=== PATIENT | female | born 1985 | race Two or more races ===

== ENCOUNTER 2017-03-24 14:00 | Inpatient (IN) | payer MEDICAID, OTHER ==
[~2017-03-24] VITALS: Ht 162.6 cm; Wt 74.7 kg
[2017-03-24] MEDS ORDERED: NALOXONE 1 MG/ML, 2ML ONE ×2 (14:23→17:46)
[2017-03-24 15:04] LABS: BASOPHILS # (AUTO) 0.02 x10^3/uL (0-0.1); BASOPHILS % (AUTO) 0 % (0-1); EOSINOPHILS % (AUTO) 0 % (1-7); LYMPHOCYTES # (AUTO) 0.24 x10^3/uL (1-3.4); LYMPHOCYTES % (AUTO) 2 % (22-44); MD NO; MEAN CORPUSCULAR HEMOGLOBIN 23.2 pg (27.0-34.8); MEAN CORPUSCULAR HGB CONC 31.7 g/dL (32.4-35.8); MEAN CORPUSCULAR VOLUME 73.1 fL (80-100); MEAN PLATELET VOLUME 8.8 fL (7.4-10.4); MONOCYTES # (AUTO) 1.29 x10^3/uL (0.2-0.8); MONOCYTES % (AUTO) 10 % (2-9); NEUTROPHILS # (AUTO) 11.48 x10^3/uL (1.8-6.8); NEUTROPHILS % (AUTO) 88 % (42-75); PLATELET COUNT 306 x10^3/uL (130-400); RED BLOOD COUNT 4.63 x10^6/uL (3.82-5.3); RED CELL DISTRIBUTION WIDTH 19.2 % (9.6-15.2)
[2017-03-24 15:13] LABS: ALBUMIN 3.3 g/dL (3.4-5.0); ANION GAP 8 mmol/L (5-15); CALCIUM 8.5 mg/dL (8.5-10.1); CHLORIDE 101 mmol/L (98-107)
[2017-03-24 15:17] LABS: SALICYLATE LEVEL < 1.7 mg/dL (2.8-20.0)
[2017-03-24 15:20] LABS: ALANINE AMINOTRANSFERASE 57 U/L (12-78); ALKALINE PHOSPHATASE 74 U/L (45-117); BILIRUBIN,TOTAL 0.2 mg/dL (0.2-1.0); CREATININE 0.94 mg/dL (0.55-1.02); TOTAL PROTEIN 7.2 g/dL (6.4-8.2)
[2017-03-24 15:21] LABS: ACETAMINOPHEN < 2 mcg/mL (10-30)
[2017-03-24] MEDS ORDERED: NALOXONE 1 MG/ML, 2ML IVPush ONE ×2 (15:30)
[2017-03-24] MEDS ORDERED: NALOXONE 0.4 MG in SODIUM CHLORIDE 0.9% 1,000 ML IV SCH (15:30)
[2017-03-24 16:29] LABS: AMPHETAMINE SCREEN, URINE Negative (Negative); BARBITURATE SCREEN, URINE Negative (Negative); BENZODIAZEPINE SCREEN, URINE Negative (Negative); CANNABINOID SCREEN, URINE Positive (Negative); COCAINE SCREEN, URINE Negative (Negative); METHADONE SCREEN, URINE Negative (Negative); OPIATE SCREEN, URINE Positive (Negative)
[2017-03-24] MEDS ORDERED: BISACODYL 10 MG SUPP PR PRN (18:00)
[2017-03-24] MEDS ORDERED: ACETAMINOPHEN 325 MG TABLET PO PRN (18:00)
[2017-03-24] MEDS ORDERED: NALOXONE 0.4 MG/ML, 1ML IVPush PRN (18:00)
[2017-03-24] MEDS ORDERED: POLYETHYLENE GLYCOL 17 GM PACKET PO PRN (18:00)
[2017-03-24] MEDS: SODIUM CHLORIDE 0.9% 1,000 ML IV SCH (19:36)
[2017-03-24] MEDS: FAMOTIDINE 20 MG/2 ML IVPush SCH (19:47)
[2017-03-24] MEDS: ENOXAPARIN 40 MG/0.4 ML SQ SCH (19:47)
[2017-03-24] MEDS: NALOXONE 10 MG in SODIUM CHLORIDE 0.9% 1,000 ML IVPush SCH (23:05)
[2017-03-25 00:01] VITALS: BP 108/72
[2017-03-25 04:00] VITALS: BP 122/64
[2017-03-25 04:43] LABS: MEAN CORPUSCULAR HEMOGLOBIN 23.5 pg (27.0-34.8); MEAN CORPUSCULAR HGB CONC 31.6 g/dL (32.4-35.8); MEAN CORPUSCULAR VOLUME 74.4 fL (80-100); MEAN PLATELET VOLUME 9.3 fL (7.4-10.4); PLATELET COUNT 281 x10^3/uL (130-400); RED BLOOD COUNT 4.21 x10^6/uL (3.82-5.3); RED CELL DISTRIBUTION WIDTH 19.5 % (9.6-15.2)
[2017-03-25 04:49] LABS: ALBUMIN 2.9 g/dL (3.4-5.0); ANION GAP 5 mmol/L (5-15); CALCIUM 8.1 mg/dL (8.5-10.1); CHLORIDE 105 mmol/L (98-107)
[2017-03-25 04:53] LABS: ALANINE AMINOTRANSFERASE 50 U/L (12-78); ALKALINE PHOSPHATASE 68 U/L (45-117); BILIRUBIN,TOTAL 0.4 mg/dL (0.2-1.0); CREATININE 0.51 mg/dL (0.55-1.02); TOTAL PROTEIN 6.5 g/dL (6.4-8.2)
[2017-03-25] MEDS: SODIUM CHLORIDE 0.9% 1,000 ML IV SCH ×2 (05:20→15:36)
[2017-03-25 05:52] LABS: BASOPHILS # (AUTO) 0.03 x10^3/uL (0-0.1); BASOPHILS % (AUTO) 0 % (0-1); EOSINOPHILS # (AUTO) 0.06 x10^3/uL (0-0.4); EOSINOPHILS % (AUTO) 1 % (1-7); LYMPHOCYTES # (AUTO) 0.84 x10^3/uL (1-3.4); LYMPHOCYTES % (AUTO) 8 % (22-44); MD SCAN; MONOCYTES # (AUTO) 0.99 x10^3/uL (0.2-0.8); MONOCYTES % (AUTO) 10 % (2-9); NEUTROPHILS # (AUTO) 8.45 x10^3/uL (1.8-6.8); NEUTROPHILS % (AUTO) 82 % (42-75)
[2017-03-25] MEDS: FAMOTIDINE 20 MG/2 ML IVPush SCH ×2 (09:26→20:58)
[2017-03-25] MEDS: NALOXONE 10 MG in SODIUM CHLORIDE 0.9% 1,000 ML IVPush SCH (09:29)
[2017-03-25] MEDS: ENOXAPARIN 40 MG/0.4 ML SQ SCH (17:06)
[2017-03-25] MEDS: FERROUS SULFATE 325 MG TABLET PO SCH (17:06)
[2017-03-25] MEDS: NALOXONE 10 MG in SODIUM CHLORIDE 0.9% 1,000 ML IV SCH (19:41)
[2017-03-26] MEDS: SODIUM CHLORIDE 0.9% 1,000 ML IV SCH ×3 (01:01→21:30)
[2017-03-26 04:00] VITALS: BP 111/68
[2017-03-26 05:42] LABS: BASOPHILS # (AUTO) 0.02 x10^3/uL (0-0.1); BASOPHILS % (AUTO) 0 % (0-1); EOSINOPHILS # (AUTO) 0.06 x10^3/uL (0-0.4); EOSINOPHILS % (AUTO) 1 % (1-7); LYMPHOCYTES # (AUTO) 0.46 x10^3/uL (1-3.4); LYMPHOCYTES % (AUTO) 5 % (22-44); MD NO; MEAN CORPUSCULAR HEMOGLOBIN 23.7 pg (27.0-34.8); MEAN CORPUSCULAR HGB CONC 32.1 g/dL (32.4-35.8); MEAN CORPUSCULAR VOLUME 73.9 fL (80-100); MEAN PLATELET VOLUME 8.9 fL (7.4-10.4); MONOCYTES # (AUTO) 0.81 x10^3/uL (0.2-0.8); MONOCYTES % (AUTO) 8 % (2-9); NEUTROPHILS # (AUTO) 8.63 x10^3/uL (1.8-6.8); NEUTROPHILS % (AUTO) 86 % (42-75); PLATELET COUNT 233 x10^3/uL (130-400); RED BLOOD COUNT 4.09 x10^6/uL (3.82-5.3); RED CELL DISTRIBUTION WIDTH 19.4 % (9.6-15.2)
[2017-03-26 05:57] LABS: ANION GAP 6 mmol/L (5-15); CALCIUM 8.4 mg/dL (8.5-10.1); CHLORIDE 104 mmol/L (98-107); CREATININE 0.32 mg/dL (0.55-1.02)
[2017-03-26] MEDS: NALOXONE 10 MG in SODIUM CHLORIDE 0.9% 1,000 ML IV SCH ×2 (07:16→18:13)
[2017-03-26] MEDS: FERROUS SULFATE 325 MG TABLET PO SCH ×2 (08:23→17:01)
[2017-03-26] MEDS: FAMOTIDINE 20 MG/2 ML IVPush SCH ×2 (08:26→20:36)
[2017-03-26] MEDS ORDERED: GADOBUTROL 7.5 MMOL/7.5 ML PFS ONE (15:20)
[2017-03-26] MEDS: ENOXAPARIN 40 MG/0.4 ML SQ SCH (17:01)
[2017-03-27 04:00] VITALS: BP 114/63
[2017-03-27] MEDS: NALOXONE 10 MG in SODIUM CHLORIDE 0.9% 1,000 ML IV SCH (04:17)
[2017-03-27 04:36] LABS: BASOPHILS # (AUTO) 0.02 x10^3/uL (0-0.1); BASOPHILS % (AUTO) 0 % (0-1); EOSINOPHILS # (AUTO) 0.08 x10^3/uL (0-0.4); EOSINOPHILS % (AUTO) 1 % (1-7); LYMPHOCYTES # (AUTO) 0.62 x10^3/uL (1-3.4); LYMPHOCYTES % (AUTO) 7 % (22-44); MD NO; MEAN CORPUSCULAR HEMOGLOBIN 23.8 pg (27.0-34.8); MEAN CORPUSCULAR HGB CONC 31.8 g/dL (32.4-35.8); MEAN CORPUSCULAR VOLUME 74.8 fL (80-100); MEAN PLATELET VOLUME 9.6 fL (7.4-10.4); MONOCYTES # (AUTO) 0.81 x10^3/uL (0.2-0.8); MONOCYTES % (AUTO) 9 % (2-9); NEUTROPHILS # (AUTO) 8.04 x10^3/uL (1.8-6.8); NEUTROPHILS % (AUTO) 84 % (42-75); PLATELET COUNT 229 x10^3/uL (130-400); RED BLOOD COUNT 4.11 x10^6/uL (3.82-5.3)
[2017-03-27 04:40] LABS: CALCIUM 8.5 mg/dL (8.5-10.1); CHLORIDE 102 mmol/L (98-107)
[2017-03-27 04:42] LABS: ANION GAP 8 mmol/L (5-15); CREATININE 0.32 mg/dL (0.55-1.02)
[2017-03-27] MEDS: SODIUM CHLORIDE 0.9% 1,000 ML IV SCH ×2 (08:50→15:31)
[2017-03-27] MEDS: FERROUS SULFATE 325 MG TABLET PO SCH ×2 (08:52→15:30)
[2017-03-27] MEDS: FAMOTIDINE 20 MG/2 ML IVPush SCH ×2 (08:52→21:45)
[2017-03-27] MEDS: NALOXONE IV SCH ×3 (10:18→15:29)
[2017-03-27] MEDS: SODIUM CHLORIDE 0.9% IV SCH ×3 (10:18→15:29)
[2017-03-27] MEDS ORDERED: MAGNESIUM CITRATE 300ML ORAL SOL PO ONE (14:00)
[2017-03-27] MEDS: ENOXAPARIN 40 MG/0.4 ML SQ SCH (17:22)
[2017-03-28] MEDS: NALOXONE IV SCH ×3 (00:49→09:09)
[2017-03-28] MEDS: SODIUM CHLORIDE 0.9% IV SCH ×3 (00:49→09:09)
[2017-03-28] MEDS: SODIUM CHLORIDE 0.9% 1,000 ML IV SCH ×2 (08:02→14:23)
[2017-03-28] MEDS: FERROUS SULFATE 325 MG TABLET PO SCH ×2 (08:02→17:47)
[2017-03-28] MEDS: NALTREXONE HCL 50 MG TABLET PO SCH (11:49)
[2017-03-28] MEDS: ONDANSETRON 2MG/ML, 2ML IVPush PRN ×2 (14:17→19:28)
[2017-03-28] MEDS ORDERED: PROMETHAZINE 25 MG/ML, 1ML ONE (15:11)
[2017-03-28] MEDS: ENOXAPARIN 40 MG/0.4 ML SQ SCH (17:48)
[2017-03-28] MEDS ORDERED: SODIUM CHLORIDE 0.9% IV SCH ×2 (21:00)
[2017-03-28] MEDS ORDERED: NALOXONE IV SCH ×2 (21:00)
[2017-03-29] MEDS: MAGNESIUM CITRATE 300ML ORAL SOL PO STA ×2 (08:05→10:23)
[2017-03-29 08:53] LABS: MEAN CORPUSCULAR HEMOGLOBIN 23.7 pg (27.0-34.8); MEAN CORPUSCULAR HGB CONC 32.3 g/dL (32.4-35.8); MEAN CORPUSCULAR VOLUME 73.3 fL (80-100); MEAN PLATELET VOLUME 8.9 fL (7.4-10.4); PLATELET COUNT 278 x10^3/uL (130-400); RED BLOOD COUNT 3.66 x10^6/uL (3.82-5.3); RED CELL DISTRIBUTION WIDTH 19.5 % (9.6-15.2)
[2017-03-29 08:58] LABS: ANION GAP 11 mmol/L (5-15); CHLORIDE 111 mmol/L (98-107); CREATININE 0.38 mg/dL (0.55-1.02)
[2017-03-29] MEDS: NALTREXONE HCL 50 MG TABLET PO SCH ×4 (09:00→13:34)
[2017-03-29 09:03] LABS: ANISOCYTOSIS 1+; BASOPHILS # (AUTO) 0.02 x10^3/uL (0-0.1); BASOPHILS % (AUTO) 0 % (0-1); EOSINOPHILS # (AUTO) 0.03 x10^3/uL (0-0.4); EOSINOPHILS % (AUTO) 0 % (1-7); LYMPHOCYTES # (AUTO) 0.85 x10^3/uL (1-3.4); LYMPHOCYTES % (AUTO) 12 % (22-44); MD MORPH REVIEW ONLY; MONOCYTES # (AUTO) 0.66 x10^3/uL (0.2-0.8); MONOCYTES % (AUTO) 9 % (2-9); NEUTROPHILS # (AUTO) 5.48 x10^3/uL (1.8-6.8); NEUTROPHILS % (AUTO) 78 % (42-75)
[2017-03-29 09:04] LABS: <PLATELET ESTIMATE> ADEQUATE; <PLT MORPHOLOGY> NORMAL PLT MORPH; OVALOCYTES 1+; POLYCHROMASIA 1+
[2017-03-29] MEDS: FERROUS SULFATE 325 MG TABLET PO SCH ×2 (10:01→17:10)
[2017-03-29] MEDS: AMPICILLIN/SULBACTAM 3 GM in SODIUM CHLORIDE 0.9% 100 ML IV SCH ×3 (10:01→15:57)
[2017-03-29] MEDS: SODIUM CHLORIDE 0.9% 1,000 ML IV SCH ×3 (11:44→23:42)
[2017-03-29] MEDS ORDERED: MAGNESIUM CITRATE 300ML ORAL SOL PO ONE (12:00)
[2017-03-29 17:04] VITALS: BP 141/92
[2017-03-29] MEDS: ENOXAPARIN 40 MG/0.4 ML SQ SCH (17:11)
[2017-03-29 19:41] VITALS: BP 151/85
[2017-03-29] MEDS: NALOXONE IV SCH (21:00)
[2017-03-29] MEDS ORDERED: NALOXONE IV SCH (21:00)
[2017-03-29] MEDS ORDERED: SODIUM CHLORIDE 0.9% IV SCH (21:00)
[2017-03-29] MEDS: SODIUM CHLORIDE 0.9% IV SCH (21:00)
[2017-03-30] MEDS: AMPICILLIN/SULBACTAM 3 GM in SODIUM CHLORIDE 0.9% 100 ML IV SCH ×4 (00:18→18:22)
[2017-03-30 01:11] VITALS: BP 110/62
[2017-03-30] MEDS: NALOXONE IV SCH ×2 (05:15→16:12)
[2017-03-30] MEDS: SODIUM CHLORIDE 0.9% IV SCH ×2 (05:15→16:12)
[2017-03-30 07:02] VITALS: BP 120/74
[2017-03-30] MEDS: ONDANSETRON 2MG/ML, 2ML IVPush PRN (09:46)
[2017-03-30] MEDS: FERROUS SULFATE 325 MG TABLET PO SCH ×2 (09:46→16:55)
[2017-03-30] MEDS: SODIUM CHLORIDE 0.9% 1,000 ML IV SCH (12:13)
[2017-03-30 14:00] VITALS: BP 108/72
[2017-03-30] MEDS: ENOXAPARIN 40 MG/0.4 ML SQ SCH (18:22)
[2017-03-30 20:09] VITALS: BP 103/69
[2017-03-30] MEDS ORDERED: NALOXONE 0.4 MG/ML, 1ML IVPush PRN (21:00)
[2017-03-31 03:38] VITALS: BP 133/79
[2017-03-31] MEDS: AMPICILLIN/SULBACTAM 3 GM in SODIUM CHLORIDE 0.9% 100 ML IV SCH ×4 (05:31→18:37)
[2017-03-31 05:41] LABS: MEAN CORPUSCULAR HEMOGLOBIN 23.6 pg (27.0-34.8); MEAN CORPUSCULAR HGB CONC 31.9 g/dL (32.4-35.8); MEAN CORPUSCULAR VOLUME 74.1 fL (80-100); MEAN PLATELET VOLUME 9.2 fL (7.4-10.4); PLATELET COUNT 322 x10^3/uL (130-400); RED BLOOD COUNT 4.01 x10^6/uL (3.82-5.3); RED CELL DISTRIBUTION WIDTH 19.6 % (9.6-15.2)
[2017-03-31 05:44] LABS: ALBUMIN 2.1 g/dL (3.4-5.0); ANION GAP 5 mmol/L (5-15); CHLORIDE 111 mmol/L (98-107)
[2017-03-31 05:49] LABS: ALANINE AMINOTRANSFERASE 28 U/L (12-78); ALKALINE PHOSPHATASE 53 U/L (45-117); BILIRUBIN,TOTAL 0.3 mg/dL (0.2-1.0); CALCIUM 7.9 mg/dL (8.5-10.1); CREATININE 0.52 mg/dL (0.55-1.02); TOTAL PROTEIN 5.4 g/dL (6.4-8.2)
[2017-03-31 06:04] LABS: MD YES
[2017-03-31 06:07] LABS: ANISOCYTOSIS 1+; BAND#(MANUAL) 0.06 x10^3/uL; BANDS%(MANUAL) 1 % (0-7); BASOS#(MANUAL) 0.06 x10^3/uL (0-0.1); BASOS% (MANUAL) 1 % (0-1); EOS#(MANUAL) 0.37 x10^3/uL (0.0-0.4); EOS% (MANUAL) 6 % (1-7); LYMPH#(MANUAL) 1.67 x10^3/uL (1-3.4); LYMPHS% (MANUAL) 27 % (22-44); MONOS#(MANUAL) 0.25 x10^3/uL (0.3-2.7); MONOS% (MANUAL) 4 % (2-9); OVALOCYTES 1+; POLYCHROMASIA 1+; SEG#(MANUAL) 3.78 x10^3/uL (1.8-6.8); SEGS% (MANUAL) 61 % (42-75)
[2017-03-31 06:08] LABS: <PLATELET ESTIMATE> ADEQUATE; <PLT MORPHOLOGY> NORMAL PLT MORPH
[2017-03-31 08:20] VITALS: BP 106/69
[2017-03-31] MEDS: FERROUS SULFATE 325 MG TABLET PO SCH ×2 (09:20→18:37)
[2017-03-31 12:43] VITALS: BP 116/73
[2017-03-31] MEDS: ENOXAPARIN 40 MG/0.4 ML SQ SCH (18:37)
[2017-03-31 19:18] VITALS: BP 109/70
[2017-03-31] MEDS ORDERED: POTASSIUM CHLORIDE 20 MEQ TAB.ER.PRT PO ONE (21:00)
[2017-04-01] MEDS: AMPICILLIN/SULBACTAM 3 GM in SODIUM CHLORIDE 0.9% 100 ML IV SCH ×2 (01:13→07:58)
[2017-04-01 02:11] VITALS: BP 108/69
[2017-04-01 02:52] VITALS: BP 118/81
[2017-04-01 06:06] LABS: MEAN CORPUSCULAR HEMOGLOBIN 23.8 pg (27.0-34.8); MEAN CORPUSCULAR HGB CONC 32.1 g/dL (32.4-35.8); MEAN PLATELET VOLUME 9.3 fL (7.4-10.4); PLATELET COUNT 303 x10^3/uL (130-400); RED BLOOD COUNT 3.95 x10^6/uL (3.82-5.3); RED CELL DISTRIBUTION WIDTH 19.3 % (9.6-15.2)
[2017-04-01 06:14] LABS: ANION GAP 6 mmol/L (5-15); CHLORIDE 109 mmol/L (98-107)
[2017-04-01 06:15] LABS: CREATININE 0.51 mg/dL (0.55-1.02)
[2017-04-01 06:48] LABS: BASOPHILS # (AUTO) 0.03 x10^3/uL (0-0.1); BASOPHILS % (AUTO) 1 % (0-1); EOSINOPHILS # (AUTO) 0.12 x10^3/uL (0-0.4); EOSINOPHILS % (AUTO) 2 % (1-7); LYMPHOCYTES % (AUTO) 30 % (22-44); MONOCYTES # (AUTO) 0.76 x10^3/uL (0.2-0.8); MONOCYTES % (AUTO) 13 % (2-9); NEUTROPHILS # (AUTO) 3.37 x10^3/uL (1.8-6.8); NEUTROPHILS % (AUTO) 55 % (42-75)
[2017-04-01 06:49] LABS: MD SCAN
[2017-04-01 07:30] VITALS: BP 110/70
[2017-04-01] MEDS: FERROUS SULFATE 325 MG TABLET PO SCH (07:58)
[2017-04-01] MEDS ORDERED: POTASSIUM CHLORIDE 20 MEQ TAB.ER.PRT PO ONE (10:00)
[2017-04-01] MEDS ORDERED: NALO0.4V14 IVPush (11:03)
[2017-04-01] MEDS ORDERED: AMOX1TAB64 PO (11:03)
[2017-04-01] MEDS ORDERED: FLU VACC QS2017-18 (36MOS+) UP/PF 0.5 ML IM-VACC ONE (11:30)
[2017-04-01] MEDS ORDERED: PNEUMOCOCCAL 23 VACCINE IM-VACC ONE (11:30)
== END 2017-04-01 12:45 | disposition home or self-care (01) | DRG 917 ==
LOC: ED 14:10 → EDIP 16:49 → CCU 18:50 → 3NE 03-29 16:46
PROVIDERS: ADMIT Hospitalist; ATTEND Hospitalist
DX: T40.1X1A Poisoning by heroin, accidental (unintentional), initial encounter (principal); G92 Toxic encephalopathy; J96.00 Acute respiratory failure, unspecified whether with hypoxia or hypercapnia; J69.0 Pneumonitis due to inhalation of food and vomit; G93.1 Anoxic brain damage, not elsewhere classified; E44.0 Moderate protein-calorie malnutrition; T40.2X1A Poisoning by other opioids, accidental (unintentional), initial encounter; T40.5X1A Poisoning by cocaine, accidental (unintentional), initial encounter; F11.10 Opioid abuse, uncomplicated; M41.9 Scoliosis, unspecified; Z80.3 Family history of malignant neoplasm of breast; Z68.28 Body mass index [BMI] 28.0-28.9, adult; Y92.89 Other specified places as the place of occurrence of the external cause; Z23 Encounter for immunization
CPT/HCPCS: 36415; 36600; 70450; 70553; 71045; 74021; 74176; 80048; 80053; 80307; 80329; 82140; 82728; 82803; 82962; 83540; 83550; 83735; 84100; 84703; 85025; 86703; 86803; 87081; 87899; 90686; 90732; 93005; 95819; 96365; 96375; 96376; A9585; J0295; J1650; J2310; J2405; G0435; G0479; G0480; J7030; J7050; S0028